=== PATIENT | female | born 1995 | race Caucasian/White ===

== ENCOUNTER 2025-02-11 12:50 | Emergency (ER) | payer MEDICAID ==
[~2025-02-11] VITALS: Ht 162.6 cm; Wt 74.0 kg
[2025-02-11 12:54] VITALS: O2SAT 100
[2025-02-11 13:09] VITALS: TEMP 36.8
[2025-02-11 13:21] LABS: BASOPHILS % 0.5 % (0.0-2.0); EOSINOPHILS % 0.7 % (0.0-5.0); HEMATOCRIT. 38.0 % (36.0-48.0); HEMOGLOBIN. 13.0 g/dL (12.0-16.0); LYMPHOCYTES % 27.0 % (20.0-50.0); MEAN PLATELET VOLUME 8.0 fl (7.4-10.4); MONOCYTES % 7.3 % (2.0-8.0); NEUTROPHILS % 64.5 % (40.0-76.0); PLATELET 282 x1000/uL (130-400); RED BLOOD CELL COUNT 4.15 mill/uL (4.2-5.4); RED CELL DISTRIBUTION WIDTH 13.2 % (11.6-14.6)
[2025-02-11 13:38] LABS: CREATININE 0.6 mg/dL (0.6-1.0); UREA NITROGEN BLOOD < 5 mg/dL (9-23)
[2025-02-11 14:05] LABS: B-HCG QUANTITATIVE 172120 mIU/mL (<6)
[2025-02-11 15:58] VITALS: BP 105/63; PULSE 69; RESP 14; O2SAT 100
== END 2025-02-11 16:13 | disposition home or self-care (01) ==
LOC: ER 12:50
DX: O20.9 Hemorrhage in early pregnancy, unspecified (principal); R10.20 Pelvic and perineal pain unspecified side; Z3A.09 9 weeks gestation of pregnancy
CPT/HCPCS: 36415; 76801; 80048; 84702; 85025; 99284